=== PATIENT | male | born 2000 | race Caucasian/White ===

== ENCOUNTER 2019-02-25 02:50 | Emergency (ER) | payer OTHER ==
[~2019-02-25] VITALS: Ht 177.8 cm; Wt 74.5 kg
[2019-02-25 03:04] VITALS: BP 154/71; TEMP 98.5
[2019-02-25] MEDS ORDERED: CEPHALEXIN500 M1 PO (04:05)
[2019-02-25 04:13] VITALS: PULSE 104
== END 2019-02-25 04:13 | disposition home or self-care (01) ==
LOC: COL.ER 02:50
DX: S81.811A Laceration without foreign body, right lower leg, initial encounter (principal); W22.8XXA Striking against or struck by other objects, initial encounter; Y92.009 Unspecified place in unspecified non-institutional (private) residence as the place of occurrence of the external cause